=== PATIENT | male | born 1990 | race Caucasian/White ===

== ENCOUNTER 2017-06-23 14:52 | Emergency (ER) ==
[2017-06-23 14:58] VITALS: BP 130/90; TEMP 97.1; BMI 25.4
--- NOTE | 2017-06-23 15:06 | ED.PDOC ---
General ED Provider: Dr. BRYANT VACA-ER Chief Complaint: Earache Stated Complaint: my ears hurt Time Seen by Physician: 15:01 Mode of Arrival: Walk-In Information Source: Patient Exam Limitations: No limitations Nursing and Triage Documentation Reviewed and Agree: Yes Reviewed sepsis parameters & appropriate labs ordered?: Yes System Inflammatory Response Syndrome: Not Applicable Sepsis Protocol: For patient's 13 years and over: Temp is 96.8 and below OR 101 and greater Pulse >90 BPM Resp >20/minute Acutely Altered Mental Status Are patient's symptoms suggestive of a new infection, such as: -Pneumonia -Skin, Soft Tissue -Endocarditis -UTI -Bone, Joint Infection -Implantable Device -Acute Abdominal Infection -Wound Infection -Meningitis -Blood Stream Catheter Infection -Unknown EENT Complaint Exam - Ear Complaint/Exam Onset/Duration: 3 days Symptoms Are: Still present Initial Severity: Mild Current Severity: Mild Character: Reports: Dull pain, Aching pain Aggravating: Reports: None Alleviating: Reports: None Associated Signs and Symptoms: Reports: URI symptoms. Denies: Ear trauma, Ear swelling, Discharge, Fever, Hearing loss, Bleeding, Sore throat, Headache, Foreign body sensation, Rash, Pain to external ear Vesicles to External Pinna: No Vesicles to Tragus: No TMJ Tenderness: None Mastoid Tenderness: None Tragal Tenderness: None External Canal: Erythema Material in Canal: Present: Cerumen Tympanic Membrane: Erythema, Dullness Differential Diagnoses: Cerumen Impaction, Otitis Media Review of Systems - Review Of Systems Constitutional: Reports: No symptoms Eyes: Reports: No symptoms Ears, Nose, Mouth, Throat: Reports: Ear pain Respiratory: Reports: No symptoms Cardiac: Reports: No symptoms GI: Reports: No symptoms : Reports: No symptoms Musculoskeletal: Reports: No symptoms Skin: Reports: No symptoms Neurological: Reports: No symptoms Endocrine: Reports: No symptoms Hematologic/Lymphatic: Reports: No symptoms All Other Systems: Reviewed and Negative Past Medical History - Past Medical History Previously Healthy: No Endocrine: Reports: Unknown Cardiovascular: Reports: Unknown Respiratory: Reports: Unknown Hematological: Reports: Unknown Gastrointestinal: Reports: Unknown Genitourinary: Reports: Unknown Neuro/Psych: Reports: Unknown Musculoskeletal: Reports: Unknown Cancer: Reports: Unknown - Surgical History General Surgical History: Reports: Unknown - Family History Family History: Reports: Unknown - Social History Smoking Status: Former smoker, Chews tobacco Hx Substance Use: No Alcohol Screening: Occasionally Physical Exam - Physical Exam Appearance: Well-appearing, No pain distress, Well-nourished Eyes: YUE, EOMI, Conjunctiva clear ENT: Ears normal, Nose normal, Oropharynx normal, Erythema Neck: Supple Respiratory: Airway patent, Breath sounds clear, Breath sounds equal, Respirations nonlabored Cardiovascular: RRR, Pulses normal, No rub, No murmur GI/: Soft, Nontender, No masses, Bowel sounds normal, No Organomegaly Musculoskeletal: Normal strength, ROM intact, No edema, No calf tenderness Skin: Warm, Dry, Normal color Neurological: Sensation intact, Motor intact, Reflexes intact, Cranial nerves intact, Alert, Oriented Psychiatric: Affect appropriate, Mood appropriate Critical Care Note - Critical Care Note Total Time (mins): 0 Course - Course Vital Signs: Temp Pulse Resp BP Pulse Ox 06/23/17 14:52 97.1 F L 67 20 130/90 97 Departure - Departure Time of Disposition: 15:07 Disposition: HOME SELF-CARE Discharge Problem: Otitis media Qualifiers: Otitis media type: suppurative Chronicity: acute Laterality: bilateral Recurrence: not specified as recurrent Spontaneous tympanic membrane rupture: without spontaneous rupture Qualified Code(s): H66.003 - Acute suppurative otitis media without spontaneous rupture of ear drum, bilateral Cerumen impaction Qualifiers: Laterality: bilateral Qualified Code(s): H61.23 - Impacted cerumen, bilateral Instructions: Ear Infection (ED) Condition: Good Pt referred to PMD for follow-up: Yes IPMP verified?: No Additional Instructions: augmentin 875mg bid x 7days--floxin otic drops 5 drops into the ear tid x 7days --f/u with pcp to [facility] ears Allergies/Adverse Reactions: Allergies ibuprofen Adverse Reaction (Verified 06/23/17 14:59) Disposition Discussed With: Patient, Family
== END 2017-06-23 15:16 | disposition home or self-care (01) ==
LOC: ED 14:52
DX: H66.003 Acute suppurative otitis media without spontaneous rupture of ear drum, bilateral (principal); H61.23 Impacted cerumen, bilateral; F17.220 Nicotine dependence, chewing tobacco, uncomplicated
CPT/HCPCS: 99282

== ENCOUNTER 2017-11-26 19:30 | Emergency (ER) ==
[2017-11-26 19:41] VITALS: BP 117/77; TEMP 97.9; BMI 24.3
[2017-11-26] MEDS ORDERED: NORCO 5-325 PO STA (20:06)
--- NOTE | 2017-11-26 20:34 | DI ---
EXAM: Four views of the right shoulder HISTORY: Right shoulder pain after hearing a pop. COMPARISON: None FINDINGS: There is no displaced fracture or dislocation. Glenohumeral joint is intact. There is fly vation of the distal clavicle in relation to the acromion with osteophyte formation. There is no lyt ic or blastic lesion. Soft tissues are normal. 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 This may r epresent a chronic process versus acute AC joint injury.
--- NOTE | 2017-11-26 21:03 | ED.PDOC ---
General ED Provider: Dr. TISH CABRAL Chief Complaint: Shoulder Pain/Injury Stated Complaint: Patient is a 26 year old male who states that he had an old injury with fracture of right clavical then yesterday while playing with is kids heard a pop and felt pain It has been getting worse since. He cannot take ibuprofen due to allergies rate his pain as moderate to severe. Time Seen by Physician: 20:20 Information Source: Patient Exam Limitations: No limitations Primary Care Provider: [facility] Nursing and Triage Documentation Reviewed and Agree: Yes Does patient meet sepsis criteria?: No If yes, has appropriate treatment been initiated?: No System Inflammatory Response Syndrome: Not Applicable Sepsis Protocol: For patient's 13 years and over: Temp is 96.8 and below OR 101 and greater Pulse >90 BPM Resp >20/minute Acutely Altered Mental Status Are patient's symptoms suggestive of a new infection, such as: -Pneumonia -Skin, Soft Tissue -Endocarditis -UTI -Bone, Joint Infection -Implantable Device -Acute Abdominal Infection -Wound Infection -Meningitis -Blood Stream Catheter Infection -Unknown Musculoskeletal Complaint Exam - Shoulder Pain Complaint/Exam Mechanism of Injury: Reports: No known trauma Onset/Duration: yesterday Symptoms Are: Still present Timing: Constant Location: Reports: Discrete Character: Reports: Aching, Throbbing, Spasmodic Alleviating: Reports: None Aggravating: Reports: Movement, Lifting, External rotation, Abduction Non-Orthopedic Risk Factors: Reports: None DVT Risk Factors: Reports: None Septic Arthritis Risk Factors: Reports: None Related Surgical History: Reports: None Tenderness: Present: AC joint, Rotator cuff muscles Limited Range of Motion: Present: Abduction, External rotation Differential Diagnoses: AC Seperation, Closed Fracture, Sprain, Strain Review of Systems - Review Of Systems Constitutional: Reports: No symptoms Eyes: Reports: No symptoms Ears, Nose, Mouth, Throat: Reports: No symptoms Respiratory: Reports: No symptoms Cardiac: Reports: No symptoms GI: Reports: No symptoms : Reports: No symptoms Musculoskeletal: Reports: Joint pain Skin: Reports: No symptoms Neurological: Reports: Anxiety Endocrine: Reports: No symptoms Hematologic/Lymphatic: Reports: No symptoms All Other Systems: Reviewed and Negative Past Medical History - Past Medical History Previously Healthy: No Endocrine: Reports: Unknown Cardiovascular: Reports: Unknown Respiratory: Reports: Unknown Hematological: Reports: Unknown Gastrointestinal: Reports: Unknown Genitourinary: Reports: Unknown Neuro/Psych: Reports: Unknown Musculoskeletal: Reports: Unknown Cancer: Reports: Unknown - Surgical History General Surgical History: Reports: Unknown - Family History Family History: Reports: Unknown - Social History Smoking Status: Former smoker, Chews tobacco Hx Substance Use: No Alcohol Screening: Occasionally - Immunizations Tetanus Shot up to Date: Yes Physical Exam - Physical Exam Appearance: Well-appearing, No pain distress, Well-nourished Eyes: YUE, EOMI, Conjunctiva clear ENT: Ears normal, Nose normal, Oropharynx normal Respiratory: Airway patent, Breath sounds clear, Breath sounds equal, Respirations nonlabored Cardiovascular: RRR, Pulses normal, No rub, No murmur GI/: Soft, Nontender, No masses, Bowel sounds normal, No Organomegaly Musculoskeletal: Limited ROM Skin: Warm, Dry, Normal color Neurological: Sensation intact, Motor intact, Reflexes intact, Cranial nerves intact, Alert, Oriented Psychiatric: Affect appropriate, Mood appropriate Interpretation - Radiology Interpretation Radiology Interpretation By: Radiologist Radiology Results: No acute changes Exam Interpreted: Other (shoulder x-ray ) Re-Evaluation - Re-Evaluation Time of Re-Evaluation: 21:16 Status: Improved Pain Level: better Critical Care Note - Critical Care Note Total Time (mins): 0 Course - Course Orders, Labs, Meds: Orders Category Date Time Status Splint [ED SPLINT APPLICATION] .ONCE EMERGENCY 11/26/17 20:58 Ordered Hydrocodone Bit/Acetaminophen [[place] 5-325] MEDS 11/26/17 20:06 Discontinued 1 tab PO ONCE STA SHOULDER, RIGHT MIN 2V Stat RADS 11/26/17 20:06 Completed Medications Discontinued Medications Generic Name Dose Route Start Last Admin Trade Name Matilda PRN Reason Stop Dose Admin Hydrocodone Bitart/Acetaminophen 1 tab 11/26/17 20:06 11/26/17 20:23 [place] 5-325 PO 11/26/17 20:07 1 tab ONCE STA Administration Vital Signs: Temp Pulse Resp BP Pulse Ox 11/26/17 19:33 97.9 F 78 18 117/77 97 Departure - Departure Time of Disposition: 21:16 Disposition: HOME SELF-CARE Discharge Problem: Shoulder pain Sprain of shoulder, right Qualifiers: Encounter type: initial encounter Shoulder sprain type: unspecified sprain Qualified Code(s): S43.401A - Unspecified sprain of right shoulder joint, initial encounter Instructions: Shoulder Sprain (ED) Condition: Stable Pt referred to PMD for follow-up: Yes IPMP verified?: No Additional Instructions: Follow up with PCP for Physical therapy and Occupational therapy consultation May Also need an MRI if pain continues. Prescriptions: Hydrocodone/Acetaminophen [[place] 5-325 Tablet] 1 tab PO Q6HR PRN #14 tablet PRN Reason: PAIN Allergies/Adverse Reactions: Allergies ibuprofen Adverse Reaction (Verified 06/23/17 14:59) Home Medications: Ambulatory Orders Escitalopram Oxalate [Lexapro] 10 mg PO DAILY 06/23/17 Hydrocodone/Acetaminophen [[place] 5-325 Tablet] 1 tab PO Q6HR PRN #14 tablet 11/06 Disposition Discussed With: Patient, Family
== END 2017-11-26 21:24 | disposition home or self-care (01) ==
LOC: ED 19:30
DX: S43.401A Unspecified sprain of right shoulder joint, initial encounter (principal); X50.1XXA Overexertion from prolonged static or awkward postures, initial encounter; Z72.0 Tobacco use
CPT/HCPCS: 99282

== ENCOUNTER 2018-07-01 10:59 | Emergency (ER) | payer OTHER, MEDICAID ==
[2018-07-01 11:04] VITALS: BP 122/82; TEMP 97.5; BMI 25.2
--- NOTE | 2018-07-01 11:46 | ED.PDOC ---
General ED Provider: Dr. BRYANT LAMB Chief Complaint: Back Pain Stated Complaint: Possible kidney stone. Sudden onset of Lt Flank pain and lt sided abdominal pain mid morning. NO PRIOR HX of similar problem. Time Seen by Physician: 11:30 Mode of Arrival: Walk-In Information Source: Patient Exam Limitations: No limitations Primary Care Provider: TAMMY LYNN Nursing and Triage Documentation Reviewed and Agree: Yes Does patient meet sepsis criteria?: No System Inflammatory Response Syndrome: Not Applicable Sepsis Protocol: For patient's 13 years and over: Temp is 96.8 and below OR 101 and greater Pulse >90 BPM Resp >20/minute Acutely Altered Mental Status Are patient's symptoms suggestive of a new infection, such as: -Pneumonia -Skin, Soft Tissue -Endocarditis -UTI -Bone, Joint Infection -Implantable Device -Acute Abdominal Infection -Wound Infection -Meningitis -Blood Stream Catheter Infection -Unknown Complaint Exam - Complaint/Exam Onset/Duration: This AM Symptoms Are: Worse Timing: Constant Initial Severity: Severe Current Severity: Severe Location of Pain: Reports: Left, Flank, Testicle Character: Reports: Sharp, Colicky, Burning, Constant pressure, Cloudy urine Alleviating: Reports: None Associated Signs and Symptoms: Reports: Diaphoresis, Back pain, Nausea, Scrotal pain Related History: Denies: Similar episode Testicular Torsion Risk Factors: Reports: None Surgical Obstruction Risk Factors: Reports: None Related Surgical History: Reports: None Abdominal Findings: Present: Abdominal distention, CVA Tenderness, Inguinal swelling Genitalia Exam: Present: Normal findings Rectal Exam: Present: Normal Findings Differential Diagnoses: UTI, Ureteral Calculi Review of Systems - Review Of Systems Constitutional: Reports: No symptoms Eyes: Reports: No symptoms Ears, Nose, Mouth, Throat: Reports: No symptoms Respiratory: Reports: No symptoms Cardiac: Reports: No symptoms GI: Reports: No symptoms : Reports: Flank pain, Pain, Urgency Musculoskeletal: Reports: No symptoms Skin: Reports: No symptoms Neurological: Reports: No symptoms Endocrine: Reports: No symptoms Hematologic/Lymphatic: Reports: No symptoms All Other Systems: Reviewed and Negative Past Medical History - Past Medical History Previously Healthy: No Endocrine: Reports: Unknown Cardiovascular: Reports: Unknown Respiratory: Reports: Unknown Hematological: Reports: Unknown Gastrointestinal: Reports: Unknown Genitourinary: Reports: Unknown Neuro/Psych: Reports: Unknown Musculoskeletal: Reports: Unknown Cancer: Reports: Unknown - Surgical History General Surgical History: Reports: Unknown - Family History Family History: Reports: Unknown - Social History Smoking Status: Former smoker, Chews tobacco Hx Substance Use: No Alcohol Screening: Occasionally Physical Exam - Physical Exam Appearance: Well-appearing, No pain distress, Well-nourished Eyes: YUE, EOMI, Conjunctiva clear ENT: Ears normal, Nose normal, Oropharynx normal Respiratory: Airway patent, Breath sounds clear, Breath sounds equal, Respirations nonlabored Cardiovascular: RRR, Pulses normal, No rub, No murmur GI/: Soft, No masses, Bowel sounds normal, No Organomegaly, Tender (Lt flank and lt abdomen; mild guarding ) Musculoskeletal: Normal strength, ROM intact, No edema, No calf tenderness Skin: Warm, Dry, Normal color Neurological: Sensation intact, Motor intact, Reflexes intact, Cranial nerves intact, Alert, Oriented Psychiatric: Affect appropriate, Mood appropriate Interpretation - Radiology Interpretation Radiology Interpretation By: Radiologist Radiology Results: Positive (CT post Lt nephrolithiasis-proxm lt ureter) Critical Care Note - Critical Care Note Total Time (mins): 60 Course - Course Hematology/Chemistry: 07/01/18 12:00 07/01/18 12:00 Orders, Labs, Meds: Lab Review 07/01/18 07/01/18 07/01/18 11:10 12:00 12:00 WBC 12.53 H RBC 5.01 Hgb 13.5 L Hct 41.0 L MCV 81.8 MCH 26.9 L MCHC 32.9 RDW Coeff of Kana 13.1 Plt Count 238 Immature Gran % (Auto) 1.1 Neut % (Auto) 47.5 Lymph % (Auto) 37.5 Orange % (Auto) 10.5 H Eos % (Auto) 2.8 Baso % (Auto) 0.6 Immature Gran # (Auto) 0.1 Neut # (Auto) 6.0 Lymph # (Auto) 4.7 H Orange # (Auto) 1.3 Eos # (Auto) 0.4 Baso # (Auto) 0.1 Sodium 140.5 Potassium 3.96 Chloride 102.1 Carbon Dioxide 25.7 Anion Gap 16.66 BUN 11.6 Creatinine 0.81 Estimated GFR (MDRD) 115.00 BUN/Creatinine Ratio 14.32 Glucose 109.5 H Calcium 9.69 Total Bilirubin 0.55 AST 23.5 ALT 23.3 Alkaline Phosphatase 106.1 Total Protein 8.28 H Albumin 4.82 Globulin 3.46 Albumin/Globulin Ratio 1.39 Urine Color Yellow Urine Clarity Clear Urine pH 5.0 Ur Specific [place] >=1.030 Urine Protein Trace Urine Glucose (UA) Negative Urine Ketones Negative Urine Blood 2+ Urine Nitrite Negative Urine Bilirubin Negative Urine Urobilinogen 0.2 Ur Leukocyte Esterase Negative Urine Microscopic RBC 10-20 Ur Squamous Epith Cells Not present Urine Mucus 1+ Orders Category Date Time Status IV [ED IV/MEDIPORT/POWERPORT] .ONCE EMERGENCY 07/01/18 11:42 Active CBC W/ AUTO DIFF Stat LAB 07/01/18 12:00 Completed CMP [COMPREHENSIVE METABOLIC PANEL] Stat LAB 07/01/18 12:00 Completed URINALYSIS C & S IF INDICATED Stat LAB 07/01/18 11:10 Completed 0.9 % Sodium Chloride [Saline Flush] MEDS 07/01/18 11:43 Active 1 syr IVF PRN PRN Hydromorphone HCl [Dilaudid 1 mg/ml Syringe] MEDS 07/01/18 11:45 Discontinued 1 mg IVP ONCE STA Hydromorphone HCl [Dilaudid 1 mg/ml Syringe] MEDS 07/01/18 14:13 Discontinued 1 mg IVP ONCE STA Ondansetron HCl/Pf [Zofran 4 mg/2 ml] MEDS 07/01/18 11:45 Discontinued 4 mg IVP ONCE STA Ondansetron HCl/Pf [Zofran 4 mg/2 ml] MEDS 07/01/18 14:14 Discontinued 4 mg IVP ONCE STA Sodium Chloride 0.9% [Sodium Chloride] 1,000 ml MEDS 07/01/18 11:43 Discontinued IV BOLUS Tamsulosin HCl [Flomax] MEDS 07/01/18 13:14 Discontinued 0.4 mg PO ONCE STA CT ABD/PEL WO RENAL STONE PROT Stat RADS 07/01/18 12:14 Completed Medications Generic Name Dose Route Start Last Admin Trade Name Freq PRN Reason Stop Dose Admin Sodium Chloride 1 syr 07/01/18 11:43 07/01/18 12:11 Saline Flush IVF 1 syr PRN PRN Administration To flush IV Discontinued Medications Generic Name Dose Route Start Last Admin Trade Name Freq PRN Reason Stop Dose Admin Hydromorphone HCl 1 mg 07/01/18 11:45 07/01/18 12:16 Dilaudid 1 Mg/Ml Syringe IVP 07/01/18 11:46 1 mg ONCE STA Administration Hydromorphone HCl 1 mg 07/01/18 14:13 07/01/18 14:35 Dilaudid 1 Mg/Ml Syringe IVP 07/01/18 14:14 1 mg ONCE STA Administration Sodium Chloride 1,000 mls @ 500 mls/hr 07/01/18 11:43 07/01/18 12:11 Sodium Chloride IV 07/01/18 13:42 500 mls/hr BOLUS STA Administration Ondansetron HCl 4 mg 07/01/18 11:45 07/01/18 12:12 Zofran 4 Mg/2 Ml IVP 07/01/18 11:46 4 mg ONCE STA Administration Ondansetron HCl 4 mg 07/01/18 14:14 07/01/18 14:33 Zofran 4 Mg/2 Ml IVP 07/01/18 14:15 4 mg ONCE STA Administration Tamsulosin HCl 0.4 mg 07/01/18 13:14 07/01/18 13:38 Flomax PO 07/01/18 13:15 0.4 mg ONCE STA Administration Vital Signs: Temp Pulse Resp BP Pulse Ox 07/01/18 11:01 97.5 F L 78 16 122/82 96 Departure - Departure Time of Disposition: 16:30 Disposition: HOME SELF-CARE Discharge Problem: Left nephrolithiasis, Left ureteral stone Instructions: Kidney Stones (ED) Condition: Good Pt referred to PMD for follow-up: Yes (in 24 hr) IPMP verified?: No Additional Instructions: Call PCP tomorrow for referral to Urologist or call for Urologist of preference in [place] or [place] Clear liquids Tylenol 650 mg every 6 hrs for pain as needed/ Rx [place] 5/325 2 q 6 hrs for severe pain urrelieved by other meds Allergies/Adverse Reactions: Allergies ibuprofen Adverse Reaction (Verified 07/01/18 11:05) Home Medications: Ambulatory Orders Hydrocodone Bit/Acetaminophen [[place] 5-325] 1 each PO Q4HR #10 tablet 07/01/18 Disposition Discussed With: Patient, Family
[2018-07-01] MEDS: SODIUM CHLORIDE 1,000 ML IV STA (12:11)
[2018-07-01] MEDS: ZOFRAN 4 MG/2 ML IVP STA ×2 (12:12→14:33)
[2018-07-01] MEDS: DILAUDID 1 MG/ML SYRINGE IVP STA ×2 (12:16→14:35)
--- NOTE | 2018-07-01 13:08 | CT ---
EXAM: CT of the abdomen pelvis without contrast History: Left flank pain. Technique: Multiplanar CT images through the abdomen pelvis were obtained without the administration of IV contrast Findings: Lung bases are clear. No acute osseous abnormalities. No gallstones identified by CT. No focal liver or splenic lesions. No peripancreatic inflammation. Adrenal glands are unremarkable. 2 mm calculus within the inferior pole of the left kidney. 4 mm c alculus within the proximal left ureter causing mild to moderate left hydronephrosis with adjacent in flammation. No bladder wall thickening. Prostate is not enlarged. No bowel obstruction. Moderate stool seen distending the rectosigmoid colon. No free air and no ascites. The appendix is not dilat ed or inflamed. Impression: 1. 4 mm calculus within the proximal left ureter causing mild to moderate left hydronephrosis. 2. Left nephrolithiasis
[2018-07-01] MEDS: FLOMAX PO STA (13:38)
== END 2018-07-01 17:07 | disposition home or self-care (01) ==
LOC: ED 10:59
DX: M54.9 Dorsalgia, unspecified (principal); R10.32 Left lower quadrant pain; R61 Generalized hyperhidrosis; R11.0 Nausea; N50.82 Scrotal pain; Z72.0 Tobacco use; N20.0 Calculus of kidney
CPT/HCPCS: 36415; 74176; 80053; 81001; 85025; 96361; 96374; 96375; 96376; 99283

== ENCOUNTER 2018-07-17 15:02 | Outpatient (CLI) ==
--- NOTE | 2018-07-18 07:28 | DI ---
EXAM: KUB HISTORY: Renal colic. COMPARISON: CT abdomen pelvis 07/01/2018 FINDINGS: There is no visualized renal stone. There is scattered gas and stool throughout the bowel in the abdomen pelvis. The osseous structures are unremarkable. IMPRESSION: No visualized renal stone is identified. The renal stone in the proximal left ureter fr om prior CT is not identified.
== END 2018-07-17 15:03 | disposition home or self-care (01) ==
LOC: RAD 15:02
PROVIDERS: ATTEND Physician Assistant Medical
DX: N23 Unspecified renal colic (principal)